=== PATIENT | female | born 1980 ===

== ENCOUNTER 2021-10-13 12:31 | Day surgery (SDC) | payer OTHER ==
[~2021-10-13] VITALS: Ht 157.5 cm; Wt 54.4 kg
[~2021-10-13 12:31] MED LIST: COZAAR25 MG PO; HYDROCHLOROTHIA25 MG PO; PROAIR RESPICL90 MCG IH
== END 2021-10-13 23:20 | disposition home or self-care (01) ==
LOC: U 12:31 → CIR.AMB 12:31
PROVIDERS: ATTEND Obstetrics & Gynecology Obstetrics
DX: R87.613 High grade squamous intraepithelial lesion on cytologic smear of cervix (HGSIL) (principal); J45.909 Unspecified asthma, uncomplicated; I10 Essential (primary) hypertension; Z20.822 Contact with and (suspected) exposure to COVID-19

== ENCOUNTER 2022-01-08 07:30 | Inpatient (IN) | payer OTHER ==
[~2022-01-08] VITALS: Ht 157.5 cm; Wt 54.4 kg
== END 2022-01-14 11:25 | disposition home or self-care (01) | DRG 741 ==
LOC: SURH 01-11 07:30 → OB/GYN 01-11 12:00 → O/R 01-11 12:00 → OB/GYN 01-11 19:21
PROVIDERS: ADMIT Obstetrics & Gynecology Obstetrics; ATTEND Obstetrics & Gynecology Obstetrics
PROC: 0TSD0ZZ Reposition Urethra, Open Approach (ICD-10-PCS; 2022-01-11)
PROC: 0UT90ZZ Resection of Uterus, Open Approach (ICD-10-PCS; principal; 2022-01-11 10:15)
DX: D06.0 Carcinoma in situ of endocervix (principal); N39.3 Stress incontinence (female) (male); N80.03 Adenomyosis of the uterus; Z20.822 Contact with and (suspected) exposure to COVID-19